=== PATIENT | female | born 1965 | race Caucasian/White ===

== ENCOUNTER → 2017-12-06 | Outpatient (CLI) | payer OTHER | END | disposition home or self-care (01) | LOC: CFH 09:29 | PROVIDERS: ATTEND Obstetrics & Gynecology Female Pelvic Medicine and Reconstructive Surgery | DX: Z12.31 Encounter for screening mammogram for malignant neoplasm of breast (principal) | CPT/HCPCS: 77063; 77067 ==

== ENCOUNTER → 2017-12-22 | Outpatient (CLI) | payer OTHER | LOC: CFH 13:58 | PROVIDERS: ATTEND Obstetrics & Gynecology Female Pelvic Medicine and Reconstructive Surgery | DX: N64.89 Other specified disorders of breast (principal); N93.8 Other specified abnormal uterine and vaginal bleeding | CPT/HCPCS: 76830; 77065 ==

== ENCOUNTER → 2018-03-08 | Outpatient (CLI) | payer OTHER | END | disposition home or self-care (01) | LOC: CFH 12:26 | PROVIDERS: ATTEND Surgery | DX: N63.21 Unspecified lump in the left breast, upper outer quadrant (principal); R92.8 Other abnormal and inconclusive findings on diagnostic imaging of breast; Z80.3 Family history of malignant neoplasm of breast ==

== ENCOUNTER 2018-03-29 09:00 | Day surgery (SDC) | payer OTHER ==
[2018-03-27 15:29] LABS: BASOPHILS # (AUTO) 0.03 x10^3/uL (0-0.1); BASOPHILS % (AUTO) 0 % (0-1); EOSINOPHILS # (AUTO) 0.18 x10^3/uL (0-0.4); EOSINOPHILS % (AUTO) 3 % (1-7); LYMPHOCYTES % (AUTO) 38 % (22-44); MD NO; MEAN CORPUSCULAR HEMOGLOBIN 30.6 pg (27.0-34.8); MEAN CORPUSCULAR HGB CONC 34.2 g/dL (32.4-35.8); MEAN CORPUSCULAR VOLUME 89.5 fL (80-100); MEAN PLATELET VOLUME 7.9 fL (7.4-10.4); MONOCYTES # (AUTO) 0.37 x10^3/uL (0.2-0.8); MONOCYTES % (AUTO) 6 % (2-9); NEUTROPHILS # (AUTO) 3.18 x10^3/uL (1.8-6.8); NEUTROPHILS % (AUTO) 53 % (42-75); PLATELET COUNT 320 x10^3/uL (130-400); RED BLOOD COUNT 5.01 x10^6/uL (3.82-5.3); RED CELL DISTRIBUTION WIDTH 13.3 % (9.6-15.2)
[2018-03-27 15:37] LABS: ALANINE AMINOTRANSFERASE 31 U/L (12-78); ALBUMIN 4.2 g/dL (3.4-5.0); ANION GAP 6 mmol/L (5-15); CALCIUM 9.4 mg/dL (8.5-10.1); CHLORIDE 105 mmol/L (98-107)
[2018-03-27 15:39] LABS: ALKALINE PHOSPHATASE 72 U/L (45-117); BILIRUBIN,TOTAL 0.5 mg/dL (0.2-1.0); TOTAL PROTEIN 7.7 g/dL (6.4-8.2)
[2018-03-27 15:46] LABS: INTERNATIONAL NORMALIZED RATIO 0.99 (0.93-1.1); PROTHROMBIN TIME 10.3 Seconds (9.6-11.5)
[~2018-03-29] VITALS: Ht 167.6 cm; Wt 64.0 kg
[~2018-03-29 09:00] MED LIST: ASCO-96 PO; BIOT25005 PO; BUPIVACAINE/PF-EPI 0.5% 1:200K ONE; CALC-534 PO; MULT-516 PO
[2018-03-29] MEDS ORDERED: GADOBUTROL 10 MMOL/10 ML VIAL ONE (09:08)
[2018-03-29] MEDS ORDERED: ACETAMINOPHEN 500 MG TABLET PO ONE (09:30)
[2018-03-29] MEDS ORDERED: SCOPOLAMINE PATCH, 1.5MG PATCH.TD72 TD ONE (09:30)
[2018-03-29] MEDS ORDERED: GABAPENTIN 300 MG CAPSULE PO ONE (09:30)
[2018-03-29] MEDS ORDERED: MIDAZOLAM 1 MG/ML, 2ML ONE (09:49)
[2018-03-29] MEDS ORDERED: FENTANYL PF 250 MCG/5ML ONE (09:49)
[2018-03-29] MEDS ORDERED: LIDOCAINE-MPF 2% ,5ML ONE (09:52)
[2018-03-29] MEDS ORDERED: PROPOFOL 10 MG/ML, 20ML ONE (09:52)
[2018-03-29] MEDS ORDERED: ROCURONIUM 10MG/ML,5ML ONE (09:52)
[2018-03-29] MEDS ORDERED: CEFAZOLIN 1,000 MG ONE ×2 (09:54)
[2018-03-29] MEDS ORDERED: SODIUM CHLORIDE 0.9% PF 10ML ONE (09:54)
[2018-03-29] MEDS ORDERED: LACTATED RINGERS 1,000 ML IV SCH (10:07)
[2018-03-29 10:09] VITALS: BP 142/85
[2018-03-29] MEDS ORDERED: PROPOFOL 50 ML ONE (10:23)
[2018-03-29] MEDS ORDERED: DEXAMETHASONE 4 MG/ML, 1ML ONE ×2 (10:23)
[2018-03-29 10:24] LABS: HCG UR SG 1.036 (1.003-1.030)
[2018-03-29] MEDS ORDERED: BUPIVACAINE/PF-EPI 0.5% 1:200K ONE (10:24)
[2018-03-29] MEDS ORDERED: BUPIVACAINE/PF 0.5% INFIL ONE (10:47)
[2018-03-29] MEDS ORDERED: ONDANSETRON 2MG/ML, 2ML ONE ×2 (11:26)
[2018-03-29] MEDS ORDERED: HYDROmorphone 1 MG/ML, 1ML IV PRN (11:30)
[2018-03-29] MEDS ORDERED: OXYcodone 5 MG/5 ML ORAL.SOL UDC PO PRN (11:30)
[2018-03-29] MEDS ORDERED: HALOPERIDOL 5 MG/ML IV PRN (11:30)
[2018-03-29] MEDS ORDERED: FENTANYL PF 100 MCG/2ML IV PRN (11:30)
[2018-03-29] MEDS ORDERED: ONDANSETRON 2MG/ML, 2ML IV PRN (11:30)
[2018-03-29] MEDS ORDERED: SODIUM BICARBONATE 4.0%, 5ML ONE (13:00)
[2018-03-29] MEDS ORDERED: LIDOCAINE 1%, 20ML ONE (13:00)
== END 2018-03-29 13:40 ==
LOC: CFH 09:00 → EDSTATUS 10:30 → OUT 13:40
PROVIDERS: ATTEND Surgery
DX: N60.12 Diffuse cystic mastopathy of left breast (principal); N60.11 Diffuse cystic mastopathy of right breast; Z98.890 Other specified postprocedural states; Z72.89 Other problems related to lifestyle; Z88.0 Allergy status to penicillin
CPT/HCPCS: 19281; 19287; 19301; 36415; 80053; 81025; 85025; 85610; 88307; A9585; J3490; 76098; J0690; J1100; J2250; J2405; J2704; J3010

== ENCOUNTER → 2018-10-30 | Outpatient (CLI) | payer OTHER ==
[~2018-10-30] MED LIST changes: -BUPIVACAINE/PF-EPI 0.5% 1:200K ONE; +GADOBUTROL 7.5 MMOL/7.5 ML VIAL ONE
== END | disposition home or self-care (01) ==
LOC: CFH 12:33
PROVIDERS: ATTEND Surgery
DX: R92.8 Other abnormal and inconclusive findings on diagnostic imaging of breast (principal); Z80.3 Family history of malignant neoplasm of breast
CPT/HCPCS: 77049; A9585

== ENCOUNTER → 2018-12-28 | Outpatient (CLI) | payer OTHER ==
[~2018-12-28] MED LIST changes: -GADOBUTROL 7.5 MMOL/7.5 ML VIAL ONE
== END | disposition home or self-care (01) ==
LOC: CFH 09:24
PROVIDERS: ATTEND Family Medicine
DX: Z12.31 Encounter for screening mammogram for malignant neoplasm of breast (principal)
CPT/HCPCS: 77063; 77067

== ENCOUNTER → 2019-03-20 | Outpatient (CLI) | payer OTHER | END | disposition home or self-care (01) | LOC: CFH 12:39 | PROVIDERS: ATTEND Family Medicine | DX: M85.88 Other specified disorders of bone density and structure, other site (principal); N95.8 Other specified menopausal and perimenopausal disorders | CPT/HCPCS: 77080 ==

== ENCOUNTER → 2019-07-11 | Outpatient (CLI) | payer OTHER | END | disposition home or self-care (01) | LOC: CFH 10:26 | PROVIDERS: ATTEND Orthopaedic Surgery | DX: M19.012 Primary osteoarthritis, left shoulder (principal); M25.512 Pain in left shoulder; M75.82 Other shoulder lesions, left shoulder; S43.492A Other sprain of left shoulder joint, initial encounter; X58.XXXA Exposure to other specified factors, initial encounter; Y93.89 Activity, other specified; Y92.89 Other specified places as the place of occurrence of the external cause; Y99.8 Other external cause status; Z88.0 Allergy status to penicillin ==